=== PATIENT | female | born 1965 ===

== ENCOUNTER 2022-10-14 09:43 | Emergency (ER) | payer OTHER ==
[~2022-10-14] VITALS: Ht 172.7 cm; Wt 113.7 kg
[2022-10-14 09:45] VITALS: PULSE 102; PULSE 140; RESP 24; RESP 25; O2SAT 98; O2SAT 99
[2022-10-14 09:51] VITALS: TEMP 97.4
[2022-10-14 10:06] LABS: HEMATOCRIT 39.5 % (36-46); HEMOGLOBIN 12.4 g/dL (12.0-16.0); MEAN CORPUSCULAR HEMOGLOBIN 26.5 pg (26.0-34.0); MEAN CORPUSCULAR HGB CONC 31.4 G/dL (31.0-37.0); MEAN CORPUSCULAR VOLUME 84 fL (80-100); PLATELET COUNT (AUTO) 226 K/uL (150-450); RED BLOOD CELL COUNT(AUTO) 4.68 MIL/uL (4.00-5.20); RED CELL DISTRIBUTION WIDTH 15.9 % (11.5-14.5)
[2022-10-14 10:08] LABS: ABG BASE EXCESS -15.1 mmol/L (-2.0-3.0); ABG CARBOXYHEMOGLOBIN 0.2 % (0.0-1.5); ABG METHEMOGLOBIN 0.3 % (0.0-1.5); ABG OXYGEN CONTENT 19.2 mL/dL (15.0-23.0); ABG OXYGEN SATURATION 99.7 % (95.0-98.0); ABG OXYHEMOGLOBIN 99.2 % (94.0-100.0); ABG PCO2 29 mmHg (35-45); ABG PH 7.247 (7.35-7.450); ABG TOTAL HEMOGLOBIN 12.7 G/dL (12.0-18.0); PO2, ARTERIAL BG 540.5 mmHg (84.0-92.0); SOURCE, BLOOD GAS ARTERIAL; TEMPERATURE, FAHRENHEIT, BG 98.6 FAHREN (96.0-98.6)
[2022-10-14 10:09] LABS: O2 DEVICE,BLOOD GAS VENTILATOR (ROOM AIR); PEEP,BG 5 cm H2O; SITE, BLOOD GAS LFT BRACHIAL; VT, ABG 450 ml
[2022-10-14 10:16] LABS: ANION GAP 23 mmol/L (8-16); CALCIUM, TOTAL 9.6 mg/dL (8.8-10.5); CARBON DIOXIDE 18 mmol/L (22-29); CHLORIDE 107 mmol/L (98-107); CREATININE 2.13 mg/dL (0.60-1.30); GLOMERULAR FILTR. RATE CALC 24 mL/min (>60); GLUCOSE,RANDOM 355 mg/dL (70-110); POTASSIUM 4.1 mmol/L (3.5-5.1); SODIUM SERUM 148 mmol/L (136-145)
[2022-10-14 10:32] LABS: ALBUMIN 3.2 g/dL (3.4-5.0); ALKALINE PHOSPHATASE 151 U/L (46-116); ASPARTATE AMINOTRANSFERASE 914 U/L (15-37); LIPASE 56 U/L (16-77); TOTAL PROTEIN, SERUM 7.3 g/dL (6.4-8.2)
[2022-10-14 10:34] LABS: APPEARANCE,URINE CLEAR (CLEAR); BILIRUBIN,URINE NEGATIVE (NEGATIVE); GLUCOSE, URINE (UA) 300-500 mg/dL (NEGATIVE); KETONES,URINE NEGATIVE (NEGATIVE); LEUKOCYTE ESTERASE ,URINE NEGATIVE (NEGATIVE); NITRATE,URINE NEGATIVE (NEGATIVE); OCCULT BLOOD,URINE LARGE (NEGATIVE); PH,URINE 6.5 (5.0-8.0); PROTEIN,URINE 100-200,SEE CONFIRM mg/dL (NEGATIVE); SPECIFIC GRAVITIY, URINE 1.009 (1.003-1.030); UROBILINOGEN,URINE <=1.0 mg/dL (<=1.0)
[2022-10-14 10:38] LABS: LACTIC ACID 14.3 mmol/L (0.4-2.0)
[2022-10-14 10:44] LABS: SULFOSALICYLIC ACID,URINE 1+ (Negative)
[2022-10-14 10:45] LABS: BACTERIA,URINE None Seen /HPF (None Seen); SQUAMOUS EPITHELIAL CELL,UR None Seen /LPF (None Seen); WBC,URINE None Seen /HPF (0-5); YEAST,URINE Rare /HPF (None Seen)
[2022-10-14 10:51] LABS: B-TYPE NATRIURETIC PEPTIDE 193 pg/mL (0-100)
[2022-10-14 10:53] LABS: BAND NEUTROPHILS % (MANUAL) 10 % (0-5); LYMPHOCYTES % (MANUAL) 9 % (22-44); METAMYELOCYTES % 2 % (0-0); MONOCYTES % (MANUAL) 4 % (2-9); MYELOCYTES % 1 % (0-0); SEGMENTED NEUTROPHILS % 74 % (40-70)
[2022-10-14 10:58] LABS: BILIRUBIN,TOTAL 0.2 mg/dL (0.1-1.0)
[2022-10-14 11:28] LABS: ALANINE AMINOTRANSFERASE 1016 U/L (12-78)
[2022-10-14 11:30] VITALS: PULSE 101; RESP 25; O2SAT 98
[2022-10-14 11:38] LABS: COVID AG,FIA SOURCE NASOPHARYNGEAL
[2022-10-14 12:15] LABS: AMPHET/METH SCREEN,URINE NEGATIVE (NEGATIVE); BARBITURATE SCREEN, URINE NEGATIVE (NEGATIVE); BENZODIAZEPINES SCREEN,URINE NEGATIVE (NEGATIVE); CANNABINOID SCREEN,URINE NEGATIVE (NEGATIVE); COCAINE SCREEN,URINE NEGATIVE (NEGATIVE); METHADONE SCREEN, URINE NEGATIVE (NEGATIVE); OPIATE SCREEN,URINE NEGATIVE (NEGATIVE); PHENCYCLIDINE SCREEN,URINE NEGATIVE (NEGATIVE)
[2022-10-14 12:30] VITALS: PULSE 107; RESP 24; O2SAT 98
[2022-10-14] MEDS ORDERED: MIDAZOLAM HCL 5 MG/ML VIAL IVP ONE (13:15)
[2022-10-14] MEDS ORDERED: MORPHINE SULFATE 10 MG/ML VIAL IVP ONE (13:15)
[2022-10-14 18:01] VITALS: BP 189/110; PULSE 123; RESP 35
== END 2022-10-14 23:01 ==
LOC: EDBD 09:45 → EMS 09:45 → EDSEX 09:45 → UNDOADMIN 18:47 → 6N 18:47 → EMS 23:01
DX: I46.9 Cardiac arrest, cause unspecified (principal); I63.9 Cerebral infarction, unspecified; F19.20 Other psychoactive substance dependence, uncomplicated; Z86.73 Personal history of transient ischemic attack (TIA), and cerebral infarction without residual deficits; Z20.822 Contact with and (suspected) exposure to COVID-19
CPT/HCPCS: 99291; 96374; 71045; 96375; 87426; 80053; 83605; 83690; 83735; 83880; 84484; 85025; 87040; 87205; 36415; 87077; 82805; 36600; 99292; 93005; 51702; 80307; 84145; 81001; J2250; 81002; 94002